=== PATIENT | female | born 1975 | race Native Hawaiian/Other Pacific Islander ===

== ENCOUNTER 2020-08-02 17:16 | Emergency (ER) | payer OTHER ==
[~2020-08-02] VITALS: Ht 165.1 cm; Wt 63.5 kg
[~2020-08-02 17:16] MED LIST: MELO-13 PO; VENL75CA2 PO
[2020-08-02 18:45] VITALS: TEMP 98.6
[2020-08-02 19:10] LABS: PLATELET COUNT 171 K/uL (152-353)
[2020-08-02 19:33] LABS: PARTIAL THROMBOPLASTIN TIME 21.4 SECONDS (24.5-33.6)
[2020-08-02 19:38] LABS: POTASSIUM 3.3 mmol/L (3.6-5.2); SODIUM 140 mmol/L (136-145)
[2020-08-03 10:35] VITALS: BP 101/56
== END 2020-08-03 12:40 | disposition other institution (70) ==
LOC: ED 17:16
PROVIDERS: Hospitalist
DX: F28 Other psychotic disorder not due to a substance or known physiological condition (principal); F31.89 Other bipolar disorder; F25.8 Other schizoaffective disorders; Z03.818 Encounter for observation for suspected exposure to other biological agents ruled out
CPT/HCPCS: 36415; 80053; 80307; 80320; 80329; 81000; 81025; 85027; 85610; 85730; 87635; 93005; 96372; 99285; J1200; J1630; J2060; U0003

== ENCOUNTER 2020-09-20 10:55 | Emergency (ER) | payer OTHER ==
[~2020-09-20] VITALS: Ht 165.1 cm; Wt 63.5 kg
[2020-09-20 11:32] LABS: PLATELET COUNT 252 K/uL (152-353)
[2020-09-20 11:38] LABS: POTASSIUM 3.4 mmol/L (3.6-5.2)
[2020-09-21 06:30] VITALS: BP 112/82; TEMP 98.7
== END 2020-09-21 08:08 | disposition other institution (70) ==
LOC: ED 10:55
PROVIDERS: Hospitalist
DX: F20.0 Paranoid schizophrenia (principal); F19.10 Other psychoactive substance abuse, uncomplicated; Z03.818 Encounter for observation for suspected exposure to other biological agents ruled out
CPT/HCPCS: 80053; 80307; 80320; 80329; 81000; 81025; 84132; 85027; 87635; 93005; 96372; 99285; J1200; J3410; J3486; Q0177; U0003